=== PATIENT | female | born 1970 | race Caucasian/White ===

== ENCOUNTER → 2019-04-29 | Outpatient (CLI) | payer SELFPAY, BC ==
--- NOTE | 2019-04-29 13:45 | MRI_ITS ---
HISTORY: Left unilateral tinnitus and chronic headaches. COMPARISON: None. TECHNIQUE: Multisequence multiplanar MR imaging of the internal auditory canals and brain per department protocol without and with 18 ml of Dotarem intravenous gadolinium. # of images including paperwork: 421 FINDINGS: IAC: Bilateral VII and VIII nerve complex are normal in size, morphology, and signal characteristics. No masses or abnormal enhancement. Bilateral cerebellopontine angle cisterns are within normal limits. Normal width of bilateral internal auditory canals. Cisternal aspect of bilateral trigeminal nerves have a normal appearance. No evidence of fluid is seen in the mastoid or middle ear cavities bilaterally. No evidence of soft tissue mass is seen involving the petrous portion of the temporal bones. BRAIN: Diffusion-weighted imaging shows no acute infarct. No remote parenchymal infarct. No parenchymal hemorrhage, intra-axial mass, mass effect, or midline shift. No abnormal extra-axial fluid collections. Ventricles are normal in size and configuration. No hydrocephalus. No abnormal enhancing parenchymal or dural based lesions. Paranasal sinuses are clear. Orbits are unremarkable. IMPRESSION: 1. Negative MR examination of bilateral internal auditory canals. at 1530 Reported and signed by: Claude Soto MD Electronically Signed: Claude Soto MD at 15:28 EDT Tel , Service support , HISTORY: Left unilateral tinnitus and chronic headaches. COMPARISON: None. TECHNIQUE: Multisequence multiplanar MR imaging of the internal auditory canals and brain per department protocol without and with 18 ml of Dotarem intravenous gadolinium. # of images including paperwork: 421 FINDINGS: IAC: Bilateral VII and VIII nerve complex are normal in size, morphology, and signal characteristics. No masses or abnormal enhancement. Bilateral cerebellopontine angle cisterns are within normal limits. Normal width of bilateral internal auditory canals. Cisternal aspect of bilateral trigeminal nerves have a normal appearance. No evidence of fluid is seen in the mastoid or middle ear cavities bilaterally. No evidence of soft tissue mass is seen involving the petrous portion of the temporal bones. BRAIN: Diffusion-weighted imaging shows no acute infarct. No remote parenchymal infarct. No parenchymal hemorrhage, intra-axial mass, mass effect, or midline shift. No abnormal extra-axial fluid collections. Ventricles are normal in size and configuration. No hydrocephalus. No abnormal enhancing parenchymal or dural based lesions. Paranasal sinuses are clear. Orbits are unremarkable. MRI/Brain W/WO Contrast IMPRESSION: 1. Negative MR examination of bilateral internal auditory canals. at 1530 Reported and signed by: Claude Soto MD Electronically Signed: Claude Soto MD at 15:29 EDT Tel , Service support ,
== END | disposition home or self-care (01) ==
PROVIDERS: Family Provider Student in an Organized Health Care Education/Training Program; PCP Student in an Organized Health Care Education/Training Program; Referring Provider Otolaryngology; Visit Provider Otolaryngology
DX: R51 Headache (principal); H93.19 Tinnitus, unspecified ear
CPT/HCPCS: 70553; A9575

== ENCOUNTER 2020-12-23 13:51 | Outpatient (RCR) | payer BC, SELFPAY ==
[2020-12-23] MEDS: COVID-19 VACC, MRNA(PFIZER)/PF 30 MCG/0.3 ML SYRINGE IM (10:05)
[2021-01-13] MEDS: COVID-19 VACC, MRNA(PFIZER)/PF 30 MCG/0.3 ML SYRINGE IM (10:06)
== END 2020-12-23 23:59 ==
LOC: IMMUN 13:51
PROVIDERS: PCP Student in an Organized Health Care Education/Training Program; Visit Provider Family Medicine
DX: Z23 Encounter for immunization (principal)
CPT/HCPCS: 0001A; 0002A; 91300

== ENCOUNTER 2022-10-30 11:20 | Outpatient (CLI) | payer BC, SELFPAY ==
--- NOTE | 2022-11-25 10:14 | PCM.PN.SRG ---
Subjective Subjective Attempted a stereotactic breast biopsy was unable to visualize the lesion case was canceled
== END 2022-10-30 23:59 | disposition home or self-care (01) ==
PROVIDERS: PCP Student in an Organized Health Care Education/Training Program; Referring Provider Surgery; Visit Provider Surgery
DX: R92.8 Other abnormal and inconclusive findings on diagnostic imaging of breast (principal); Z53.9 Procedure and treatment not carried out, unspecified reason
CPT/HCPCS: 19081